=== PATIENT | female | born 1985 | race Caucasian/White ===

== ENCOUNTER 2019-10-05 13:54 | Emergency (ER) | payer MEDICAID, SELFPAY ==
[~2019-10-05] VITALS: Ht 162.6 cm; Wt 77.1 kg
[2019-10-05 14:19] VITALS: BP 135/79
--- NOTE | 2019-10-05 14:21 | NUR ---
COVID SWAB DONE.
--- NOTE | 2019-10-05 14:26 | NUR ---
C/O COUGH, FEVER,HEADACHE, BODYACHE, LOSS OF TASTE/SMELL X 3 DAYS. MED HX: DENIES
--- NOTE | 2019-10-05 14:56 | NUR ---
Patient discharged with v/s stable. Written and verbal after care instructions given and explained. Patient alert, oriented and verbalized understanding of instructions. Ambulatory with steady gait. All questions addressed prior to discharge. ID band removed. Patient advised to follow up with PMD. Rx of IBUPROFEN & PROMETHAZINE given. Patient educated on indication of medication including possible reaction and side effects. Opportunity to ask questions provided and answered.
[2019-10-05 14:57] VITALS: BP 135/79
== END 2019-10-05 14:56 | disposition home or self-care (01) ==
LOC: MED 13:54 → EEVIPCON 13:54 → MED 14:56
DX: U07.1 COVID-19 (principal); B34.9 Viral infection, unspecified
CPT/HCPCS: 99283; U0003

== ENCOUNTER 2021-04-28 21:58 | Emergency (ER) | payer BC, SELFPAY ==
--- NOTE | 2021-04-28 22:40 | NUR ---
CALL TO TRIAGE, NO RESPONSE PATIENT LEFT WITHOUT BEING SEEN BY DR. CARRERA. NO FURTHER CARE PROVIDED FOR PATIENT.
--- NOTE | 2021-04-28 22:50 | NUR ---
CALL ED FOR THE SECOND TIME , NO RESPONSE
--- NOTE | 2021-04-28 23:00 | NUR ---
CALLED FOR THE THIRD TIME, NO RESPONSE
== END 2021-04-28 22:40 | disposition left against medical advice (07) ==
LOC: MED 21:58
DX: R10.9 Unspecified abdominal pain (principal); Z53.21 Procedure and treatment not carried out due to patient leaving prior to being seen by health care provider